=== PATIENT | male | born 1995 | race Caucasian/White ===

== ENCOUNTER 2020-05-24 11:11 | Emergency (ER) | payer OTHER ==
[2020-05-24] MEDS ORDERED: VENLAFAXINE HCL75 M3 (11:29)
[2020-05-24] MEDS ORDERED: LACTULOSE SYRUP1 ML PO (11:31)
[2020-05-24] MEDS ORDERED: FENOFIBRATE150 MG PO (11:31)
[2020-05-24 12:04] LABS: EOS # 0.1 (0.04-0.40); EOS % 1.9 % (0.0-4.0); HEMATOCRIT 42.2 % (42.0-52.0); HEMOGLOBIN 13.7 g/dL (13.5-18.0); LYMPH# 2.3 (1.50-4.00); MEAN CELL VOLUME 82 fl (78-100); MEAN CORPUSCULAR HEMOGLOBIN 27 pg (27-31); MEAN CORPUSCULAR HGB CONC 33 g/dL (33-37); MEAN PLATELET VOLUME 10.6 fl (7.4-10.4); MONO # 0.4 (0.20-0.80); NEU # 3.5 (1.40-6.50); PLATELET COUNT 393 K/mm3 (130-400); RED BLOOD COUNT 5.15 M/mm3 (4.20-5.60); RED CELL DISTRIBUTION WIDTH 13.8 % (11.5-14.5); WHITE BLOOD COUNT 6.3 K/mm3 (4.8-10.8)
[2020-05-24 12:24] LABS: ALBUMIN 4.4 g/dL (3.5-5.0)
[2020-05-24 12:25] LABS: POTASSIUM 3.8 mmol/L (3.5-5.1)
[2020-05-24 12:26] LABS: CALCIUM 9.9 mg/dL (8.3-10.5)
[2020-05-24 12:27] LABS: TOTAL PROTEIN 7.4 g/dL (6.4-8.3)
[2020-05-24 12:29] LABS: TOTAL BILIRUBIN 0.3 mg/dL (0.2-1.2)
[2020-05-24 13:05] LABS: LIPASE 29 U/L (8-78)
[2020-05-24 13:40] LABS: URINE APPEARANCE CLEAR; URINE COLOR YELLOW
[2020-05-24 13:41] LABS: URINE BILIRUBIN NEGATIVE (NEGATIVE); URINE BLOOD 50 ery/uL (NEGATIVE); URINE GLUCOSE NEGATIVE (NEGATIVE); URINE KETONE NEGATIVE (NEGATIVE); URINE LEUKOCYTE ESTERASE NEGATIVE (NEGATIVE); URINE NITRATE NEGATIVE (NEGATIVE); URINE PROTEIN(semi-quant) TRACE mg/dL (NEGATIVE); URINE UROBILINOGEN NORMAL (NORMAL)
[2020-05-24 14:50] VITALS: BP 139/88
== END 2020-05-24 14:51 ==
LOC: ED 11:11
PROVIDERS: Nurse Practitioner Family
DX: R10.9 Unspecified abdominal pain (principal); F41.9 Anxiety disorder, unspecified; F31.9 Bipolar disorder, unspecified; Z87.891 Personal history of nicotine dependence
CPT/HCPCS: J7030